=== PATIENT | female | born 2000 | race Caucasian/White ===

== ENCOUNTER 2023-12-07 08:18 | Outpatient (CLI) | payer BC, SELFPAY ==
--- NOTE | ~2023-12-07 | US_ITS ---
US abdomen limited INDICATION: Epigastric pain. Reflux. Diarrhea. PROCEDURE: Realtime right upper abdominal ultrasound. COMPARISON: No prior studies for comparison. FINDINGS: The pancreas is normal without focal mass or pancreatic ductal dilation. Liver echotexture is normal without focal mass or intrahepatic biliary dilatation. There is normal directional flow i n the portal vein. There is gallbladder sludge with small stones. No significant gallbladder wall thickening or perichol ecystic fluid. Common bile duct measures 2 mm. No sonographic Carrington's sign. IMPRESSION: 1: Cholelithiasis with gallbladder sludge. Reviewed, dictated and finalized at location B.
== END 2023-12-07 08:19 | disposition home or self-care (01) ==
PROVIDERS: PCP Family Medicine; Visit Provider Family Medicine
DX: K80.20 Calculus of gallbladder without cholecystitis without obstruction (principal); K21.9 Gastro-esophageal reflux disease without esophagitis; R19.7 Diarrhea, unspecified
CPT/HCPCS: 76705

== ENCOUNTER 2024-02-15 09:25 | Outpatient (CLI) | payer BC, SELFPAY ==
[2024-02-15 10:14] LABS: Alanine Aminotransferase 16 U/L (6-35); Albumin Level 4.5 g/dL (3.5-5.1); Alkaline Phosphatase 67 U/L (38-126); Amylase 71 U/L (30-110); Aspartate Amino Transferase 18 U/L (14-36); Bilirubin,Total 0.3 mg/dL (0.2-1.3); Lipase 83 U/L (23-300)
== END 2024-02-15 09:26 | disposition home or self-care (01) ==
PROVIDERS: PCP Family Medicine; Visit Provider Surgery
DX: K80.10 Calculus of gallbladder with chronic cholecystitis without obstruction (principal); Z01.818 Encounter for other preprocedural examination
CPT/HCPCS: 36415; 80076; 82150; 83690

== ENCOUNTER 2024-02-21 02:41 | Day surgery (SDC) | payer BC, SELFPAY ==
[2024-02-07 13:26] VITALS: BMI 40.9
--- NOTE | 2024-02-07 13:26 | PC.NURSE ---
Report to the Outpatient Waiting Room, entrance under the green pavilion located off [facility], at time _1000_ on date _[id number]_. Planned Procedure Time: _1200_.? Time changes happen often and if your time is changed the preop area will call you the afternoon before. - You and your visitor will be asked to self-screen and do not enter if you have any COVID symptoms. Please call surgeon if you need to reschedule. - A mask is optional within the hospital at this time. Patients may have clear liquids (water, carbonated beverages, clear teas, apple juice) until 3 hours prior to surgery with a maximum of 20 ounces. - No food from midnight until time of surgery and no smoking. This includes no chewing gum, candy or mints. Take only the following medications with a SIP of water on the morning of surgery: ___None DO NOT STOP ANY OF YOUR OTHER PRESCRIPTION MEDICATIONS PRIOR TO SURGERY EXCEPT THE FOLLOWING Medications to discontinue per physician __None____ Please no make-up, nail bengali, hairspray, perfume, deodorant, or body powder the day of surgery.? No jewelry (including any body piercings) or valuables the day of surgery, leave them at home.? Please take a shower or bath the night before, or the morning of, surgery with an antibacterial soap.? Wear comfortable, loose fitting clothing.? - Jewelry must be removed prior to entering the operating room.? Rings and piercings that are not removed may be cut off. - The hospital will not accept responsibility for valuables.? - Please leave all valuables, including medications, at home the day of surgery. If you are going home after surgery, a licensed recycler forklift driver truck driver must drive you home.? - NO public transportation without another adult if you receive anesthesia. - We recommend that an adult stay with you for 24 hours following discharge. - We also recommend that you do not drive, make important decision, drink alcoholic beverages, or take any drugs that were not prescribed by your health care provider for at least 24 hours after your discharge time. Follow any additional instructions given to you from your surgeon. Telephone instructions given to _Edwin__and asked if any additional questions and then verbalized understanding. Patient advised to call surgeon office or pre surgery nurse liaison [phone] if any additional questions.
--- NOTE | 2024-02-19 09:15 | P.SS_ITS ---
Same Day Admit/Disch: HPI History of Present Illness Chief complaint: Chronic cholecystitis with gallstones Narrative: Edwin Jain is a 23 year old female who was been having intermittent epigastric pain associated with eating. Fatty foods are particularly troublesome. She had an ultrasound which showed gallstones and sludge. She is taken to surgery now for laparoscopic cholecystectomy [facility] Surgical History Surgical History History of repair of ACL Family History Family History Grandparent Diabetes mellitus Social History Social History Social History: caffeine use, tea everyday Smoking status: Never smoker Alcohol intake: current Substance use: never Substance use type: does not use Living arrangements: with family Spiritual care concerns: No Same Day Admit/Disch: Med Pre-admit Medications Home Medications ?Medication ?Instructions ?Recorded ?Confirmed ?Type levonorgestrel-ethinyl estradiol 1 tablet PO DAILY 12/24/23 02/21/24 History 0.1 mg-20 mcg tablet (Aviane) pantoprazole 40 mg tablet,delayed 40 mg PO DAILY 12/24/23 02/21/24 History release ketorolac 10 mg tablet 10 mg PO Q6H 4 days #16 tabs 02/21/24 Rx oxycodone-acetaminophen 5 mg-325 0.5 - 1 tablet PO Q4H PRN pain #10 02/21/24 Rx mg tablet (Percocet) tabs Review of Systems Constitutional Constitutional: Denies chills and Denies fever(s) Cardiovascular Cardiovascular: Denies chest pain, Denies diaphoresis, Denies dyspnea and Denies paroxysmal nocturnal dyspnea Respiratory Respiratory: Denies chest congestion, Denies cough and Denies dyspnea Integumentary/Breasts Skin/Breast: Denies lesions and Denies rash Exam Const: General: comfortable, no acute distress, alert and awake HENMT: Head: normocephalic and atraumatic Mouth: Yes Normal oral and palatal mucosa present Eyes: Conjunctivae: conjunctivae normal Pupils: Equal, round and reactive pupils present EOM: EOMs intact bilaterally Neck: Neck: normal visual inspection, no lymphadenopathy and nontender Resp: Effort & Inspection: normal respiratory effort Auscultation: clear to auscultation bilaterally Cardio: Rate: regular rate Rhythm: regular rhythm Heart sounds: no gallops, no murmurs and no rubs GI: Inspection: non-distended GI Palp: Yes Soft to palpation, No Tenderness to palpation present (GI), No Hepatomegaly present and No Splenomegaly present Skin: Lesions: no lesions Rashes: no rashes Neuro: General: no focal motor deficits and CN's II-XI intact bilaterally Cranial nerves: Yes Equal, round and reactive pupils present, Yes Bilaterally intact EOM present, Yes facial symmetry and Yes Midline tongue present Speech: normal speech Motor exam (neuro): 5/5 motor strength present throughout and Motor abnormalities not present Extrem: General: no clubbing, cyanosis or edema and edema Psych: Affect: normal affect Thought process: Normal thought process present Insight: Good insight present (Psych) DS: Summary Time Spent with Patient Time attestation: Total time spent providing and/or coordinating discharge services: DS: Admitting Diagnosis Discharge Date February 21, 2024 Admitting Diagnosis Chronic cholecystitis cholelithiasis-plan to proceed with laparoscopic cholecystectomy under anesthesia. The procedure, risks, benefits, alternatives have been discussed. Usual length of the surgery as well as the typical recovery have been discussed. All questions were answered. She understands and wishes to go ahead. DS: Discharge Diagnosis Discharge Diagnosis (1) Chronic cholecystitis with calculus: Code(s): K80.10 - Calculus of gallbladder with chronic cholecystitis without obstruction Status: Chronic Assessment and Plan: Laparoscopic cholecystectomy performed by Dr. Montoya on 02/21/2024 Discharge Plan Discharge Patient Disposition: Home, Self-Care Discharge Instructions: 1. May shower the day after surgery over incisions. 2. Call office for: -Wound increasingly painful or bleeding -Vomiting -Fever of greater than 101 degrees 3. Expect some blood on dressing and old blood on skin. 4. If no bowel movement for three days, take 1 oz. (30 ml) Milk of Magnesia, if no results, take Fleets enema. 5. No heavy lifting > 15-20 pounds for 2 weeks. 6. No driving for 3 days or while taking narcotic pain medications. 7. Up walking 10-30 minutes three times per day. 8. Resume previous home medications. 9. Follow-up 10-14 days in office for wound check or as previously scheduled. 10. Oral pain medications prescription to be sent home with patient. 11. NUTRITION: Start out by drinking fluids and increase your diet as tolerated. If you experience nausea, try dry toast, crackers, and 7-UP. If nausea or vomiting persists, contact your surgeon?s office. Patient Language: Arabic Stand Alone Forms: General Discharge Instructions Follow-up/Referrals: Johan Montoya MD [Physician] - 2 Weeks (Call for appointment if you do not already have an appointment) Discharge Medications: New ketorolac 10 mg tablet 10 mg PO Q6H 4 Days Qty: 16 0RF oxycodone-acetaminophen [Percocet] 5-325 mg tablet 0.5 - 1 tablet PO Q4H PRN (Reason: pain) Qty: 10 0RF Continued levonorgestrel-ethinyl estrad [Aviane] 0.1-20 mg-mcg tablet 1 tablet PO DAILY Patient Comments: Says takes at HS pantoprazole 40 mg tablet,delayed release (DR/EC) 40 mg PO DAILY
[2024-02-21] VITALS (11 sets, daily range): BP systolic 103–135; BP diastolic 53–74; PULSE 65–105; RESP 12–19; TEMP 36.2–36.4; O2SAT 95–100
[2024-02-21 10:49] LABS: BEDSIDEPREGUCG Negative (Negative)
[2024-02-21] MEDS: KETOROLAC 15 MG/ML VIAL (*BKC) IV PUSH (10:56)
[2024-02-21] MEDS: LACTATED RINGERS 1,000 ML 30 ML IV CONT ×2 (10:56→13:58)
[2024-02-21] MEDS: ACETAMINOPHEN 500 MG TABLET 1000 MG PO (10:56)
[2024-02-21] MEDS: SCOPOLAMINE 1 MG PATCH 1 PATCH TRANSDERM (11:01)
--- NOTE | 2024-02-21 12:16 | WPDANESEPPF ---
Anes - Initial Pre Proc Eval Procedure: Operation Date: 02/21/24 13:00 Proposed Procedures p Laparoscopic Cholecystectomy - Johan Montoya MD Date/Time: 02/21/24 12:16 Surgeon: Johan Montoya MD Pre Op Diagnosis: Chronic cholecystitis with gallstones Patient Data Age: 23 Gender: F Height: 1.78 m Weight: 130.7 kg Last Vital Signs Temp 36.2 C L 02/21/24 10:30 Pulse 78 02/21/24 10:30 Resp 14 02/21/24 10:30 BP 135/74 02/21/24 10:30 Pulse Ox 100 02/21/24 10:30 O2 Del Method Room Air 02/21/24 10:30 Allergies Allergy/AdvReac Type Severity Reaction Status Date / Time red dye AdvReac Intermediate Nausea and Verified 02/21/24 11:03 Vomiting Home Medications ?Medication ?Instructions ?Recorded ?Confirmed ?Type levonorgestrel-ethinyl estradiol 1 tablet PO DAILY 12/24/23 02/21/24 History 0.1 mg-20 mcg tablet (Aviane) pantoprazole 40 mg tablet,delayed 40 mg PO DAILY 12/24/23 02/21/24 History release Laboratory Tests 02/21/24 10:30 POC Urine HCG, Qual Negative (Negative) Patient hx anesthesia problems: none Family hx anesthesia problems: none Results Review: All pre-operative results and documents have been reviewed as part of the pre-operative evaluation. [facility] Surgical History Surgical History History of repair of ACL Family History Family History Grandparent Diabetes mellitus Social History Social History Social History: caffeine use, tea everyday Smoking status: Never smoker Alcohol intake: current Substance use: never Substance use type: does not use Living arrangements: with family Spiritual care concerns: No Anes - Eval Final PreProcedure Day of Procedure 02/21/24 12:16 Patient weight: morbidly obese Heart: regular rate and rhythm Lungs: clear to auscultation Airway: Mallampati scale class III Neurological: alert and oriented Last oral intake: >/= 8 hours ASA classification: III Emergent: no Anesthetic plan: proceed Anesthesia type and monitoring: general ETT and standard monitoring Results Review: All pre-operative results and documents have been reviewed as part of the pre-operative evaluation. Informed Consent: The patient's anesthetic plan and its attendant risks and benefits were discussed with the patient/family/POA. Questions were solicited and answers provided to the satisfaction of the patient/family/POA.
--- NOTE | 2024-02-21 12:35 | WPDHPUPDATE1 ---
History and Physical Update Update Date/Time: 02/21/24 12:35 History and Physical has been reviewed, including an updated exam of the patient. There are NO changes in the patient's condition. Risks, benefits, and alternatives have been discussed and questions answered. Patient agrees to proceed with procedure.
[2024-02-21] MEDS: ceFAZolin 3 GM/D5W 100 ML 100 ML IVPB (12:49)
--- NOTE | 2024-02-21 12:56 | P.OP_ITS ---
Procedure Note - Detailed Date of Procedure 02/21/24 Pre-op Diagnosis Chronic cholecystitis with gallstones Post-op Diagnosis Same Procedure Performed Laparoscopic cholecystectomy Surgeon Johan Montoya MD Ob/Gyn Physician [facility] Anesthesia General and Local Indications Postprandial epigastric pain and imaging showed gallstones and sludge Findings Chronic cholecystitis, no biliary ductal dilatation, no liver abnormality Description of Procedure Patient was taken to surgery and induced into general anesthesia. The abdomen is prepped and draped. Trocars were placed in usual fashion using a 5 mm applied Medical optical trocar and a 5 mm camera. The gallbladder was decompressed with a laparoscopic aspirator. The cholecystotomy was closed with a Vicryl endoloop. The gallbladder was freed from adhesions and retracted anterosuperiorly. Traction was placed on the infundibulum to expose the cholecystohepatic triangle. Dissection was carried out and the cystic duct and cystic artery were clearly dissected. The gallbladder was dissected off the liver at its lower 3rd. Critical view was achieved. We then securely clipped and divided the cystic duct and cystic artery. The gallbladder was then further dissected free of its peritoneal attachments. Once completely freed, it was placed in an Endo-Catch bag retrieved through the 10 11 epigastric trocar site. We replaced the epigastric trocar and then reviewed the right upper quadrant and gallbladder fossa. We irrigated and suctioned the area and use some additional cautery on the liver bed. All looked good with no evidence of bleeding or bile leakage. We then evacuated CO2 and removed the trocar sleeves. Skin wounds were closed with subcuticular 4-0 Monocryl skin suture. Exofin surgical adhesive was then applied to the wounds as a dressing. Patient was then awakened and extubated. She transferred to recovery in good condition. Sponge and needle counts were correct x2. Estimated Blood Loss -5 Drains No Packing No Pathology Yes (Gallbladder) Complications None Condition Stable Disposition PACU [facility] Billing Surgery - Charge Forward: Surgery Billing (Laparoscopic cholecystectomy)
[2024-02-21] MEDS: BUPIVACAINE/EPINEPHRINE 0.5% 30 ML VIAL INFILTRATE (13:19)
[2024-02-21] MEDS: fentaNYL CITRATE INJ (*CRX) 100 MCG/2 ML VIAL 25 MCG IV PUSH ×8 (14:09→15:02)
[2024-02-21] MEDS: oxyCODONE HCL (*CRX) 5 MG TAB IR PO (15:51)
== END 2024-02-21 16:47 | disposition home or self-care (01) ==
PROVIDERS: PCP Family Medicine; Visit Provider Surgery
PROC: 0FT44ZZ Resection of Gallbladder, Percutaneous Endoscopic Approach (ICD-10-PCS; CPT 47562; principal; 2024-02-21 13:00)
DX: K80.10 Calculus of gallbladder with chronic cholecystitis without obstruction (principal); G89.18 Other acute postprocedural pain; E66.01 Morbid (severe) obesity due to excess calories; Z68.41 Body mass index [BMI] 40.0-44.9, adult; Z79.891 Long term (current) use of opiate analgesic; Z98.890 Other specified postprocedural states
CPT/HCPCS: 47562; 88304; A9270; J0690; J1100; J1885; J2003; J2250; J2405; J2704; J3010; J7120